=== PATIENT | female | born 1995 | race Caucasian/White ===

== ENCOUNTER 2016-06-12 19:56 | Emergency (ER) | payer OTHER ==
--- NOTE | 2016-06-12 20:33 | ER Document Report ---
ED Medical Screen (RME) - General Chief Complaint: Sore Throat Stated Complaint: NECK PAIN/SWELLING TRAVEL OUTSIDE OF THE [place] IN LAST 30 DAYS: No - HPI Notes: 06/12/16 20:33 Patient was seen at [facility] today diagnosed with mono before coming to the [facility]. Patient complaining of throat pain and swelling patient states that the did nothing for her other until she had mono. Otherwise patient speaking complete sentences. No obvious distress. - Related Data Allergies/Adverse Reactions: naproxen [From Naprosyn] Allergy (Severe, Verified 06/12/16 20:08) meloxicam [From Mobic] Adverse Reaction (Verified 06/12/16 20:08) Home Medications: Current Home Medications No Home Medications 06/12/16 [History] Past Medical History Renal/ Medical History: Denies: Hx Peritoneal Dialysis Physical Exam - Vital signs Vitals: Temp Pulse Resp BP Pulse Ox 99.2 F 102 H 18 107/69 99 06/12/16 20:09 06/12/16 20:09 06/12/16 20:09 06/12/16 20:09 06/12/16 20:09 - Respiratory Respiratory status: No respiratory distress Chest status: Nontender Breath sounds: Normal Course - Vital Signs Vital signs: Temp Pulse Resp BP Pulse Ox 99.2 F 102 H 18 107/69 99 06/12/16 20:09 06/12/16 20:09 06/12/16 20:09 06/12/16 20:09 06/12/16 20:09
[2016-06-12] MEDS ORDERED: ACETAMINOPHEN SOLN 325 MG/10.15 ML UDCUP PO ONE (21:19)
--- NOTE | 2016-06-12 21:29 | ER Document Report ---
HPI - HPI Patient complains to provider of: sore throat Pain Level: 5 Context: Patient is a 20-year-old female presents emergency Department complaining of sore throat for the past 4 days. She was recently seen at [facility] was diagnosed positive has mono and came for second opinion. At this time patient admits to difficulty swallowing as well as swollen lymph nodes low grade fevers headaches but denies any difficulty breathing, shortness of breath, wheezing, chest pain. - CARDIOVASCULAR Cardiovascular: DENIES: Chest pain - REPRODUCTIVE LMP: 05/06/16 - DERM Skin Color: Pale Past Medical History - Social History Smoking Status: Never Smoker Frequency of alcohol use: None Drug Abuse: None Family History: Reviewed & Not Pertinent Patient has suicidal ideation: No Patient has homicidal ideation: No Renal/ Medical History: Denies: Hx Peritoneal Dialysis Vertical Provider Document - CONSTITUTIONAL Agree With Documented VS: Yes Exam Limitations: No Limitations General Appearance: WD/WN, No Apparent Distress - INFECTION CONTROL TRAVEL OUTSIDE OF THE [place] IN LAST 30 DAYS: No - HEENT HEENT: Atraumatic, Normocephalic, PERRLA, Pharyngeal Tenderness, Pharyngeal Erythema. negative: Pharyngeal Exudate, Tympanic Membrane Red, Tympanic Membrane Bulging - NECK Neck: Lymphadenopathy-Left, Lymphadenopathy-Right - RESPIRATORY Respiratory: Breath Sounds Normal, No Respiratory Distress, Chest Non-Tender. negative: Rales, Rhonchi, Wheezing O2 Sat by Pulse Oximetry: 99 - CARDIOVASCULAR Cardiovascular: Regular Rate, Regular Rhythm, No Murmur Pulses: Normal: Radial - GI/ABDOMEN Gastrointestinal: Abdomen Soft, Abdomen Non-Tender, No Organomegaly, Normal Bowel Sounds - MUSCULOSKELETAL/EXTREMETIES Musculoskeletal/Extremeties: MAEW, FROM, Non-Tender, No Edema - NEURO Level of Consciousness: Awake, Alert, Appropriate Motor/Sensory: No Motor Deficit, No Sensory Deficit - DERM Integumentary: Warm, Dry, No Rash Course - Re-evaluation Re-evalutation: 06/12/16 22:02 Patient's mono spot came back positive. Discussed with patient over-the- counter medications for pain control. Discussed with her to follow up with her primary care physician as needed. Patient counseled on risks of enlarged spleen so encouraged not to involve in any contact sports - Vital Signs Vital signs: Temp Pulse Resp BP Pulse Ox 99.2 F 102 H 18 107/69 99 06/12/16 20:09 06/12/16 20:09 06/12/16 20:09 06/12/16 20:09 06/12/16 20:09 - Laboratory Laboratory results interpreted by me: 06/12/16 20:51 Monotest POSITIVE H Discharge - Discharge Clinical Impression: Mononucleosis Condition: Good Disposition: HOME, SELF-CARE Instructions: Mononucleosis ([facility]) Additional Instructions: Warm tea with honey can be beneficial for sore throats Prescriptions: Acetaminophen with Codeine [Acetaminophn-Cod 240-24 mg Jackelyn] 10 ml PO Q6HP PRN 5 Days PRN Reason: Forms: Return to Work
[2016-06-12 21:59] VITALS: BP 98/62
== END 2016-06-12 21:59 | disposition home or self-care (01) ==
LOC: ER 19:56
DX: B27.90 Infectious mononucleosis, unspecified without complication (principal); J02.9 Acute pharyngitis, unspecified; R50.9 Fever, unspecified; R59.9 Enlarged lymph nodes, unspecified
CPT/HCPCS: 99283; 36415; 87070; 87880; 84703; 86308; J3490

== ENCOUNTER 2017-01-21 18:45 | Emergency (ER) | payer MEDICAID, OTHER ==
[2017-01-21] MEDS ORDERED: ACETAMINOPHEN 325 MG TABLET PO ONE (19:01)
--- NOTE | 2017-01-21 19:01 | ER Document Report ---
ED General - General Chief Complaint: Vomiting Stated Complaint: LOWER BACK PAIN Time Seen by Provider: 01/21/17 18:55 Mode of Arrival: Ambulatory Information source: Patient Notes: 21-year-old female is presents with complaints of nausea vomiting and flank pain. Patient has pains on the right side. She denies any fevers or chills, notes that she is currently being treated with Macrobid for a UTI. Patient notes she had a UTI in 1 month ago and then [facility] and was [facility] back on Macrobid bid. Patient denies any vaginal bleeding drainage TRAVEL OUTSIDE OF THE [place] IN LAST 30 DAYS: No - HPI Onset: Yesterday Onset/Duration: Sudden Quality of pain: Cramping Severity: Mild Pain Level: 1 Associated symptoms: Nausea, Vomiting Exacerbated by: Denies Relieved by: Denies Similar symptoms previously: Yes Recently seen / treated by doctor: Yes - Related Data Allergies/Adverse Reactions: naproxen [From Naprosyn] Allergy (Severe, Verified 01/21/17 18:48) meloxicam [From Mobic] Adverse Reaction (Verified 01/21/17 18:48) Home Medications: Current Home Medications Nitrofurantoin Macrocrystal [Macrodantin] 100 mg PO BID 01/21/17 [History] No122/Iron/Folic Acid [ Multi Tablet] 1 each PO DAILY 01/21/17 [History] Past Medical History - Social History Smoking Status: Never Smoker Cigarette use (# per day): No Chew tobacco use (# tins/day): No Smoking Education Provided: No Family History: Reviewed & Not Pertinent Patient has suicidal ideation: No Patient has homicidal ideation: No Renal/ Medical History: Denies: Hx Peritoneal Dialysis Review of Systems - Review of Systems Notes: REVIEW OF SYSTEMS: CONSTITUTIONAL : Denies fever, chills, or sweats. Denies recent illness. EENT: Denies eye, ear, throat, or mouth pain or symptoms. Denies nasal or sinus congestion or discharge. Denies throat, tongue, or mouth swelling or difficulty swallowing. CARDIOVASCULAR: Denies chest pain. Denies palpitations or racing or irregular heart beat. Denies ankle edema. RESPIRATORY: Denies cough, cold, or chest congestion. Denies shortness of breath, difficulty breathing, or wheezing. GASTROINTESTINAL: admits to right flank pain, nausea vomiting GENITOURINARY: Denies difficulty urinating, painful urination, burning, frequency, blood in urine, or discharge. FEMALE GENITOURINARY: Denies vaginal bleeding, heavy or abnormal periods, irregular periods. Denies vaginal discharge or odor. MUSCULOSKELETAL: Denies back or neck pain or stiffness. Denies joint pain or swelling. SKIN: Denies rash, lesions or sores. HEMATOLOGIC : Denies easy bruising or bleeding. LYMPHATIC: Denies swollen, enlarged glands. NEUROLOGICAL: Denies confusion or altered mental status. Denies passing out or loss of consciousness. Denies dizziness or lightheadedness. Denies headache. Denies weakness or paralysis or loss of use of either side. Denies problems with gait or speech. Denies sensory loss, numbness, or tingling. Denies seizures. PSYCHIATRIC: Denies anxiety or stress. Denies depression, suicidal ideation, or homicidal ideation. ALL OTHER SYSTEMS REVIEWED AND NEGATIVE. PHYSICAL EXAMINATION: GENERAL: Well-appearing, well-nourished and in no acute distress. HEAD: Atraumatic, normocephalic. EYES: Pupils equal round and reactive to light, extraocular movements intact, conjunctiva are normal. ENT: Nares patent, oropharynx clear without exudates. Moist mucous membranes. NECK: Normal range of motion, supple without lymphadenopathy LUNGS: Breath sounds clear to auscultation bilaterally and equal. No wheezes rales or rhonchi. HEART: Regular rate and rhythm without murmurs ABDOMEN: Soft, nontender, nondistended abdomen. No guarding, no rebound. No masses appreciated. mild right cva Female : deferred Musculoskeletal: Normal range of motion, no pitting or edema. No cyanosis. NEUROLOGICAL: Cranial nerves grossly intact. Normal speech, normal gait. Normal sensory, motor exams PSYCH: Normal mood, normal affect. SKIN: Warm, Dry, normal turgor, no rashes or lesions noted. Dictation was performed using [employer]er[employer] voice recognition software Physical Exam - Vital signs Vitals: Temp Pulse Resp BP Pulse Ox 98.6 F 77 20 102/66 99 01/21/17 18:48 01/21/17 18:48 01/21/17 18:48 01/21/17 18:48 01/21/17 18:48 Course - Re-evaluation Re-evalutation: 01/21/17 19:05 Patient's vital signs are stable, the initial concern is for pyelonephritis however she overall looks quite well. Lab work is pending patient will be given IV fluids for concerns of excessive vomiting and dehydration 01/21/17 20:44 Patient's CMP hemolyzed, patient wishes to go home, I will discharge her without this lab result, her urinalysis looks well she feels much better has been resting. Patient denies any other concerns will be discharged home nausea control After performing a Medical Screening Examination, I estimate there is LOW risk for ACUTE APPENDICITIS, BOWEL OBSTRUCTION, ACUTE CHOLECYSTITIS, PERFORATED DIVERTICULITIS, INCARCERATED HERNIA, PANCREATITIS, PELVIC INFLAMMATORY DISEASE, PERFORATED ULCER, ECTOPIC , or TUBO-OVARIAN ABSCESS, thus I consider the discharge disposition reasonable. Also, there is no evidence or peritonitis , sepsis, or toxicity. I have reevaluated this patient multiple times and no significant life threatening changes are noted. The patient and I have discussed the diagnosis and risks, and we agree with discharging home with close follow-up with the understanding that symptoms and presentations can change. We also discussed returning to the Emergency Department immediately if new or worsening symptoms occur. We have discussed the symptoms which are most concerning (e.g., bloody stool, fever, changing or worsening pain, vomiting) that necessitate immediate return. - Vital Signs Vital signs: Temp Pulse Resp BP Pulse Ox 98.6 F 77 20 102/66 99 01/21/17 18:48 01/21/17 18:48 01/21/17 18:48 01/21/17 18:48 01/21/17 18:48 - Laboratory Result Diagrams: 01/21/17 19:40 01/21/17 19:40 Laboratory results interpreted by me: 01/21/17 01/21/17 19:40 20:00 Hct 34.9 L Urine Ketones 80 H Ur Leukocyte Esterase TRACE H Discharge - Discharge Clinical Impression: Nausea & vomiting Qualifiers: Vomiting type: unspecified Vomiting Intractability: non-intractable Qualified Code(s): R11.2 - Nausea with vomiting, unspecified Condition: Stable Instructions: Vomiting ([facility]) Additional Instructions: Follow up with your physician tomorrow for further care or return to the ED IMMEDIATELY if symptoms worsen or new concerns occur. If you cannot afford to follow up with your primary care physician a list of low cost clinics have been provided at the end of your discharge papers as well. Prescriptions: Metoclopramide HCl [Reglan 10 mg Tablet] 1 - 2 tab PO ASDIR PRN #25 tablet PRN Reason:
[2017-01-21] MEDS ORDERED: NORMAL SALINE 1000 ML 1,000 ML IV ONE (19:02)
[2017-01-21] MEDS ORDERED: METOCLOPRAMIDE HCL INJ/PF 10 MG/2 ML SDV IV ONE (19:02)
[2017-01-21 19:50] LABS: ABSOLUTE LYMPHOCYTES (AUTO) 1.1 10^3/uL (0.5-4.7); ABSOLUTE MONOCYTES (AUTO) 0.3 10^3/uL (0.1-1.4); ABSOLUTE NEUT (AUTO) 3.6 10^3/uL (1.7-8.2); BASOPHILS % (AUTO) 0.5 % (0-2); EOSINOPHILS % (AUTO) 0.3 % (0-6); HEMATOCRIT 34.9 % (36.0-47.0); HEMOGLOBIN 12.5 g/dL (12.0-15.5); HGB HCT DIFFERENCE 2.6; LYMPHOCYTES % (AUTO) 21.2 % (13-45); MEAN CORPUSCULAR HEMOGLOBIN 30.6 pg (27.0-33.4); MEAN CORPUSCULAR HGB CONC 35.9 g/dL (32.0-36.0); MEAN CORPUSCULAR VOLUME 85 fl (80-97); MONOCYTES % (AUTO) 5.5 % (3-13); RED BLOOD COUNT 4.09 10^6/uL (3.72-5.28); RED CELL DISTRIBUTION WIDTH 13.6 % (11.5-14.0); SEGMENTED NEUTROPHILS % (AUTO) 72.5 % (42-78)
[2017-01-21 20:39] LABS: APPEARANCE,URINE CLOUDY; BILIRUBIN,URINE NEGATIVE (NEGATIVE); GLUCOSE, URINE NEGATIVE (NEGATIVE); KETONES,URINE 80 mg/dL (NEGATIVE); LEUKOCYTE ESTERASE,URINE TRACE (NEGATIVE); NITRITE,URINE NEGATIVE (NEGATIVE); PROTEIN,URINE NEGATIVE (NEGATIVE); URINE SPECIFIC GRAVITY 1.028; UROBILINOGEN,URINE NEGATIVE mg/dL (<2.0)
[2017-01-21 20:51] VITALS: BP 101/43
== END 2017-01-21 20:51 | disposition home or self-care (01) ==
LOC: ER 18:45
DX: R11.2 Nausea with vomiting, unspecified (principal); N39.0 Urinary tract infection, site not specified; R10.9 Unspecified abdominal pain; Z88.8 Allergy status to other drugs, medicaments and biological substances
CPT/HCPCS: 99283; 96361; 96374; 36415; 87086; 85025; 81001; J3490; J2765; J7030

== ENCOUNTER 2017-01-27 15:13 | Inpatient (IN) | payer MEDICAID ==
[2017-01-27] MEDS ORDERED: OXYCODONE-ACETAMINOPHEN 5-325 MG TABLET PO PRN (16:22)
[2017-01-27] MEDS ORDERED: MISOPROSTOL 0.2 MG TABLET PV ONE (16:30)
[2017-01-27 16:50] LABS: ABSOLUTE LYMPHOCYTES (AUTO) 1.3 10^3/uL (0.5-4.7); ABSOLUTE MONOCYTES (AUTO) 0.3 10^3/uL (0.1-1.4); ABSOLUTE NEUT (AUTO) 3.5 10^3/uL (1.7-8.2); BASOPHILS % (AUTO) 0.3 % (0-2); EOSINOPHILS % (AUTO) 0.5 % (0-6); HEMATOCRIT 32.6 % (36.0-47.0); HEMOGLOBIN 11.9 g/dL (12.0-15.5); HGB HCT DIFFERENCE 3.1; LYMPHOCYTES % (AUTO) 25.4 % (13-45); MEAN CORPUSCULAR HGB CONC 36.5 g/dL (32.0-36.0); MEAN CORPUSCULAR VOLUME 85 fl (80-97); MONOCYTES % (AUTO) 6.4 % (3-13); RED BLOOD COUNT 3.84 10^6/uL (3.72-5.28); RED CELL DISTRIBUTION WIDTH 13.8 % (11.5-14.0); SEGMENTED NEUTROPHILS % (AUTO) 67.4 % (42-78); WHITE BLOOD COUNT 5.2 10^3/uL (4.0-10.5)
[2017-01-28] MEDS ORDERED: MISOPROSTOL 0.2 MG TABLET ONE ×2 (09:07→15:26)
--- NOTE | 2017-01-28 09:21 | PDOC PROGRESS REPORT ---
Subjective-OB Subjective: Post Delivery Day: 21 year old. Denies any needs at this time. In to evaluate pt. Physical Exam (OB) Vital Signs: Temp Pulse Resp BP Pulse Ox 98.9 F 66 17 92/57 L 100 01/28/17 08:05 01/28/17 08:05 01/28/17 08:05 01/28/17 08:05 01/28/17 08:05 Intake & Output 01/27/17 01/28/17 01/29/17 06:59 06:59 06:59 Weight 61.689 kg - Abdomen Hernia Present: No - Genitourinary Bimanuel exam: Other - Cervix FT, thick Objective-Diagnostic Laboratory: 01/27/17 16:33 01/27/17 01/27/17 16:33 16:33 WBC 5.2 RBC 3.84 Hgb 11.9 L Hct 32.6 L MCV 85 MCH 31.0 MCHC 36.5 H RDW 13.8 Plt Count 186 Seg Neutrophils % 67.4 Lymphocytes % 25.4 Monocytes % 6.4 Eosinophils % 0.5 Basophils % 0.3 Absolute Neutrophils 3.5 Absolute Lymphocytes 1.3 Absolute Monocytes 0.3 Absolute Eosinophils 0.0 Absolute Basophils 0.0 Blood Type A NEGATIVE Antibody Screen NEGATIVE Assessment and Plan(PN) - Assessment and Plan (1) demise before 20 weeks with retention of fetus Is this a current diagnosis for this admission?: Yes Plan: Cont Cytotec induction. 800mg placed vaginally. Re-evaluate q 6hrs. - Time Spent with Patient Time with patient: Less than 15 minutes
--- NOTE | 2017-01-28 16:23 | PDOC PROGRESS REPORT ---
Subjective-OB Subjective: Post Delivery Day: 21 year old. Denies any needs at this time. In to evaluate pt. No cramping. Physical Exam (OB) Vital Signs: Temp Pulse Resp BP Pulse Ox 98.6 F 73 18 95/47 L 99 01/28/17 15:39 01/28/17 15:39 01/28/17 15:39 01/28/17 15:39 01/28/17 15:39 Intake & Output 01/27/17 01/28/17 01/29/17 06:59 06:59 06:59 Intake Total 480 Balance 480 Weight 61.689 kg - Abdomen Hernia Present: No - Genitourinary Bimanuel exam: Other - Cervix / Objective-Diagnostic Laboratory: 01/27/17 16:33 01/27/17 01/27/17 16:33 16:33 WBC 5.2 RBC 3.84 Hgb 11.9 L Hct 32.6 L MCV 85 MCH 31.0 MCHC 36.5 H RDW 13.8 Plt Count 186 Seg Neutrophils % 67.4 Lymphocytes % 25.4 Monocytes % 6.4 Eosinophils % 0.5 Basophils % 0.3 Absolute Neutrophils 3.5 Absolute Lymphocytes 1.3 Absolute Monocytes 0.3 Absolute Eosinophils 0.0 Absolute Basophils 0.0 Blood Type A NEGATIVE Antibody Screen NEGATIVE Assessment and Plan(PN) - Assessment and Plan (1) demise before 20 weeks with retention of fetus Is this a current diagnosis for this admission?: Yes Plan: Cytotec 800mcg placed. Cont current management.
[2017-01-28] MEDS ORDERED: MAGNESIUM HYDROXIDE SUSP 30 ML UDCUP PO ONE (17:00)
[2017-01-28] MEDS: OXYCODONE-ACETAMINOPHEN 5-325 MG TABLET PO PRN (18:38)
[2017-01-29] MEDS ORDERED: MISOPROSTOL 0.2 MG TABLET ONE ×3 (00:47→16:05)
--- NOTE | 2017-01-29 01:08 | PDOC PROGRESS REPORT ---
Subjective Progress Note for:: 01/29/17 Subjective:: 21 yo with 15wk IUFD here for induction. Pt without complaints. Physical Exam - Physical Exam Vital Signs: Temp Pulse Resp BP Pulse Ox 98.6 F 64 16 92/48 L 98 01/28/17 23:14 01/28/17 23:14 01/28/17 23:14 01/28/17 23:14 01/28/17 23:14 Intake & Output 01/27/17 01/28/17 01/29/17 06:59 06:59 06:59 Intake Total 480 Balance 480 Weight 61.689 kg General appearance: PRESENT: no acute distress Head exam: PRESENT: atraumatic, normocephalic Gentrourinary exam: PRESENT: other - Cervix loose FT/th Neurological exam: PRESENT: alert, awake, oriented to person, oriented to place , oriented to time, oriented to situation - Gynecological Exam Labia: normal Perineum: normal Result Laboratory Results: 01/27/17 16:33 Assessment & Plan - Diagnosis (1) demise before 20 weeks with retention of fetus Is this a current diagnosis for this admission?: Yes - Plan Summary Plan Summary: Cytotec 800mcg placed. Pt has had 4 doses of Cytotec at the current strength with small change in cervical exam. If possible, consider D&E as no significant progress being made with Cytotec.
[2017-01-29] MEDS ORDERED: MISOPROSTOL 0.2 MG TABLET PV ONE (01:15)
--- NOTE | 2017-01-29 08:54 | PDOC PROGRESS REPORT ---
Subjective Progress Note for:: 01/29/17 Physical Exam - Physical Exam Vital Signs: Temp Pulse Resp BP Pulse Ox 98.9 F 72 16 98/49 L 98 01/29/17 07:52 01/29/17 07:52 01/29/17 07:52 01/29/17 07:52 01/29/17 07:52 Intake & Output 01/28/17 01/29/17 01/30/17 06:59 06:59 06:59 Intake Total 480 Balance 480 Weight 61.689 kg - Gynecological Exam Labia: normal Perineum: normal Result Laboratory Results: 01/27/17 16:33 Assessment & Plan - Plan Summary Plan Summary: pt without complaints but no results from cytotec.. Spoke with pt about a D&E tomorrow if no delivery effected before
[2017-01-29] MEDS: OXYCODONE-ACETAMINOPHEN 5-325 MG TABLET PO PRN (17:15)
[2017-01-29] MEDS ORDERED: MISOPROSTOL 0.2 MG TABLET PV SCH (18:00)
[2017-01-29] MEDS ORDERED: ACETAMINOPHEN 325 MG TABLET PO PRN (19:52)
[2017-01-29] MEDS ORDERED: ONDANSETRON HCL INJ/PF 4 MG/2 ML SDV IV PRN ×2 (19:52)
[2017-01-29] MEDS: MISOPROSTOL 0.2 MG TABLET PV SCH (21:33)
[2017-01-29] MEDS ORDERED: DEXTROSE 40% GEL 15 GM TUBE PO PRN ×2 (22:18)
[2017-01-29] MEDS ORDERED: GLUCAGON,HUMAN RECOMB 1 MG INJ SUBCUT PRN (22:18)
[2017-01-29] MEDS ORDERED: DEXTROSE 50%-WATER 25 GM/50 ML DISP.SYRIN IV PRN ×2 (22:18)
[2017-01-30] MEDS: MISOPROSTOL 0.2 MG TABLET PV SCH ×2 (03:36→08:23)
[2017-01-30 08:02] VITALS: BP 100/50
--- NOTE | 2017-01-30 11:05 | PDOC DISCHARGE SUMMARY ---
General - Admit/Disc Date/PCP Admission Date/Primary Care Provider: 01/27/17 15:13 MAKSIM DURHAM MD Discharge Date: 01/30/17 - Discharge Diagnosis (1) demise before 20 weeks with retention of fetus Is this a current diagnosis for this admission?: Yes Summary: IUFD at 15+5 with 14weeks ega by measurement. Patient admitted on 01/27 for IOL for IUFD with high dose cytotec for 3 days now. Pt is now declining further medical management. Reviewed possible options including other medications and possible Cooks catheter. However, cervical exam now after 3 days of medical management is only Finger tip at external os and closed at internal os. Reviewed unable to place cooks catheter. Patient desires referral to [facility] for continued management. Repeat labs ordered this am and if stable (including coags) then will discharge to home with urgent outpatient f/u with [facility]. - Additional Information Home Medications: Metoclopramide HCl [Reglan 10 mg Tablet] 1 - 2 tab PO ASDIR PRN #25 tablet 01/21 Nitrofurantoin Macrocrystal [Macrodantin] 100 mg PO BID 01/21/17 No122/Iron/Folic Acid [ Multi Tablet] 1 each PO DAILY 01/21/17 History of Present Illness Patient complains of: IUFD at 15+5ega History of Present Illness: JOCELYNE THOMAS is a 21 year old female IUFD at 15+5ega with measurement of fetus at 14wks ega. Admitted for IOL due to IUFD on 01/27. Hospital Course Hospital Course: IUFD at 15+5 with 14weeks ega by measurement. Patient admitted on 01/27 for IOL for IUFD with high dose cytotec for 3 days now. Pt is now declining further medical management. Reviewed possible options including other medications and possible Cooks catheter. However, cervical exam now after 3 days of medical management is only Finger tip at external os and closed at internal os. Reviewed unable to place cooks catheter. Patient desires referral to [facility] for continued management. Physical Exam - Physical Exam Vital Signs: Temp Pulse Resp BP Pulse Ox 98.5 F 70 17 100/50 L 99 01/30/17 07:31 01/30/17 07:31 01/30/17 07:31 01/30/17 07:31 01/30/17 07:31 Intake & Output 01/29/17 01/30/17 01/31/17 06:59 06:59 06:59 Intake Total 480 100 Output Total 900 Balance 480 -800 General appearance: PRESENT: no acute distress, well-developed, well-nourished Head exam: PRESENT: atraumatic, normocephalic Respiratory exam: PRESENT: clear to auscultation barrera, symmetrical, unlabored Cardiovascular exam: PRESENT: RRR. ABSENT: diastolic murmur, rubs, systolic murmur Pulses: PRESENT: normal dorsalis pedis pul, +2 pedal pulses bilateral Vascular exam: PRESENT: normal capillary refill GI/Abdominal exam: PRESENT: normal bowel sounds, soft. ABSENT: distended, guarding, mass, organolmegaly, rebound, tenderness Rectal exam: PRESENT: deferred Extremities exam: PRESENT: full ROM. ABSENT: calf tenderness, clubbing, pedal edema Neurological exam: PRESENT: alert, awake, oriented to person, oriented to place , oriented to time, oriented to situation, CN II-XII grossly intact. ABSENT: motor sensory deficit Psychiatric exam: PRESENT: appropriate affect, normal mood. ABSENT: homicidal ideation, suicidal ideation Skin exam: PRESENT: dry, intact, warm. ABSENT: cyanosis, rash - Gynecological Exam Labia: normal Perineum: normal Result Laboratory Results: 01/27/17 16:33 Status: Imported from PACS Plan Discharge Plan: Discharge with oupatient f/u in [facility]. If vaginal bleeding/abdominal pain then present to [facility] ER. pt verbalized understanding. Time Spent: Greater than 30 Minutes
[2017-01-30 11:12] LABS: ABSOLUTE MONOCYTES (AUTO) 0.3 10^3/uL (0.1-1.4); ABSOLUTE NEUT (AUTO) 4.6 10^3/uL (1.7-8.2); BASOPHILS % (AUTO) 0.3 % (0-2); EOSINOPHILS % (AUTO) 0.3 % (0-6); HEMATOCRIT 33.1 % (36.0-47.0); HEMOGLOBIN 11.7 g/dL (12.0-15.5); LYMPHOCYTES % (AUTO) 16.6 % (13-45); MEAN CORPUSCULAR HEMOGLOBIN 30.8 pg (27.0-33.4); MEAN CORPUSCULAR HGB CONC 35.5 g/dL (32.0-36.0); MEAN CORPUSCULAR VOLUME 87 fl (80-97); MONOCYTES % (AUTO) 4.6 % (3-13); RED BLOOD COUNT 3.81 10^6/uL (3.72-5.28); RED CELL DISTRIBUTION WIDTH 13.5 % (11.5-14.0); SEGMENTED NEUTROPHILS % (AUTO) 78.2 % (42-78); WHITE BLOOD COUNT 5.9 10^3/uL (4.0-10.5)
[2017-01-30 11:18] LABS: PROTHROMBIN TIME 13.5 SEC (11.4-15.4)
[2017-01-30 11:19] LABS: PARTIAL THROMBOPLASTIN TIME 31.1 SEC (23.5-35.8)
[2017-01-30 11:36] LABS: ALANINE AMINOTRANSFERASE 21 U/L (9-52); ALBUMIN 3.8 g/dL (3.5-5.0); ALKALINE PHOSPHATASE 33 U/L (38-126); ANION GAP 14 (5-19); ASPARTATE AMINO TRANSFERASE 17 U/L (14-36); BILIRUBIN,DIRECT 0.3 mg/dL (0.0-0.4); BILIRUBIN,TOTAL 0.7 mg/dL (0.2-1.3); BLOOD UREA NITROGEN 10 mg/dL (7-20); CALCIUM 9.3 mg/dL (8.4-10.2); CARBON DIOXIDE 18 mmol/L (22-30); CHLORIDE 106 mmol/L (98-107); CREATININE RESULT 0.55 mg/dL (0.52-1.25); GLUCOSE 76 mg/dL (75-110); POTASSIUM 4.1 mmol/L (3.6-5.0); SODIUM 138.1 mmol/L (137-145); TOTAL PROTEIN 6.4 g/dL (6.3-8.2)
== END 2017-01-30 12:46 | disposition short-term general hospital (02) | DRG 779 ==
LOC: INTOOBSV 15:13 → OBSVTOIN 15:13 → 2S 15:13
PROVIDERS: ADMIT Obstetrics & Gynecology Gynecology; ATTEND Obstetrics & Gynecology Gynecology
PROC: 3E0P7GC Introduction of Other Therapeutic Substance into Female Reproductive, Via Natural or Artificial Opening (ICD-10-PCS; principal; 2017-01-27)
DX: O02.1 Missed abortion (principal); Z82.49 Family history of ischemic heart disease and other diseases of the circulatory system; Z83.3 Family history of diabetes mellitus
CPT/HCPCS: 36415; 80053; 85025; 85610; 85730; 86850; 86900; 86901; J2405; J3490

== ENCOUNTER 2017-04-19 20:42 | Emergency (ER) | payer MEDICAID ==
--- NOTE | 2017-04-20 00:30 | ER Document Report ---
ED Medical Screen (RME) - General Chief Complaint: Vaginal Bleeding Stated Complaint: VAGINAL BLEEDING Time Seen by Provider: 04/20/17 00:28 Mode of Arrival: Ambulatory Information source: Patient Notes: 20-year-old female presents to ED for complaint of vaginal bleeding severe heavy with large clots tonight. She states she had a miscarriage in January and has had no period since January until Monday. She stated Monday it was super light bleeding with no clots today it started like a normal menstrual cycle in the morning and then tonight the bleeding was much heavier with a large clots. She states even when she urinates she has clots and she is going to a tampon about every 3040 minutes. She states she has no abdominal pain no pelvic pain but she does have low back pain. I have greeted and performed a rapid initial assessment of this patient. A comprehensive ED assessment and evaluation of the patient, analysis of test results and completion of medical decision making process will be conducted by an additional ED providers. TRAVEL OUTSIDE OF THE [place] IN LAST 30 DAYS: No - Related Data Allergies/Adverse Reactions: naproxen [From Naprosyn] Allergy (Severe, Verified 01/21/17 18:48) meloxicam [From Mobic] Adverse Reaction (Verified 01/21/17 18:48) Past Medical History - Past Medical History Cardiac Medical History: Denies: Hx Hypertension, Hx Pulmonary Embolism, Hx Heart Murmur Pulmonary Medical History: Denies: Hx Asthma, Hx Sleep Apnea, Hx Tuberculosis Neurological Medical History: Denies: Hx Cerebrovascular Accident, Hx Seizures Endocrine Medical History: Reports: Hx Hypothyroidism - not current diagnosis. Denies: Hx Hyperthyroidism Renal/ Medical History: Reports: Hx Ovarian Cysts - in high school. Denies: Hx Kidney Stones, Hx Peritoneal Dialysis, Hx Pelvic Inflammatory Disease Malignancy Medical History: Denies: Hx Breast Cancer, Hx Cervical Cancer, Hx Ovarian Cancer GI Medical History: Denies: Hx Gastroesophageal Reflux Disease, Hx Hiatal Hernia , Hx Ulcer Musculoskeltal Medical History: Denies Hx Fibromyalgia Psychiatric Medical History: Denies: Hx Bipolar Disorder, Hx Depression, Hx Post Traumatic Stress Disorder , Hx Schizophrenia Traumatic Medical History: Denies: Hx Fractures Infectious Medical History: Denies: Hx HIV Past Surgical History: Reports: Hx Tonsillectomy - Immunizations Hx Diphtheria, Pertussis, Tetanus Vaccination: No History of Influenza Vaccine for 12/2016 - 05/2017 Season: Refused
[2017-04-20 01:14] LABS: ABSOLUTE EOSINOPHILS # (AUTO) 0.1 10^3/uL (0.0-0.6); ABSOLUTE MONOCYTES (AUTO) 0.4 10^3/uL (0.1-1.4); ABSOLUTE NEUT (AUTO) 2.9 10^3/uL (1.7-8.2); BASOPHILS % (AUTO) 0.4 % (0-2); EOSINOPHILS % (AUTO) 1.3 % (0-6); HEMATOCRIT 36.6 % (36.0-47.0); HEMOGLOBIN 12.4 g/dL (12.0-15.5); LYMPHOCYTES % (AUTO) 36.8 % (13-45); MEAN CORPUSCULAR HEMOGLOBIN 29.4 pg (27.0-33.4); MEAN CORPUSCULAR HGB CONC 33.8 g/dL (32.0-36.0); MEAN CORPUSCULAR VOLUME 87 fl (80-97); MONOCYTES % (AUTO) 7.1 % (3-13); PLATELET COUNT 236 10^3/uL (150-450); RED BLOOD COUNT 4.21 10^6/uL (3.72-5.28); RED CELL DISTRIBUTION WIDTH 12.3 % (11.5-14.0); SEGMENTED NEUTROPHILS % (AUTO) 54.4 % (42-78); TOTAL CELLS COUNTED % (AUTO) 100 %; WHITE BLOOD COUNT 5.3 10^3/uL (4.0-10.5)
[2017-04-20 01:24] LABS: APPEARANCE,URINE CLEAR; BILIRUBIN,URINE NEGATIVE (NEGATIVE); CALCIUM OXALATE CRYSTALS,URINE RARE /HPF; COLOR,URINE YELLOW; GLUCOSE, URINE NEGATIVE (NEGATIVE); KETONES,URINE NEGATIVE (NEGATIVE); LEUKOCYTE ESTERASE,URINE NEGATIVE (NEGATIVE); NITRITE,URINE NEGATIVE (NEGATIVE); PROTEIN,URINE NEGATIVE (NEGATIVE); URINE SPECIFIC GRAVITY 1.026; UROBILINOGEN,URINE NEGATIVE mg/dL (<2.0)
[2017-04-20 01:33] LABS: ALANINE AMINOTRANSFERASE 24 U/L (9-52); ALBUMIN 4.4 g/dL (3.5-5.0); ALKALINE PHOSPHATASE 44 U/L (38-126); ANION GAP 10 (5-19); ASPARTATE AMINO TRANSFERASE 20 U/L (14-36); BILIRUBIN,DIRECT 0.3 mg/dL (0.0-0.4); BILIRUBIN,TOTAL 0.3 mg/dL (0.2-1.3); BLOOD UREA NITROGEN 18 mg/dL (7-20); CALCIUM 9.9 mg/dL (8.4-10.2); CARBON DIOXIDE 24 mmol/L (22-30); CHLORIDE 108 mmol/L (98-107); GLUCOSE 92 mg/dL (75-110); POTASSIUM 3.8 mmol/L (3.6-5.0); SODIUM 141.5 mmol/L (137-145)
--- NOTE | 2017-04-20 03:38 | ER Document Report ---
ED GI/ - General Chief Complaint: Vaginal Bleeding Stated Complaint: VAGINAL BLEEDING Time Seen by Provider: 04/20/17 00:28 Mode of Arrival: Ambulatory Notes: 21-year-old female presented to ED for complaint of vaginal bleeding that was severe with large clots tonight. She states she had a miscarriage in January and has had no period since January until Monday. She stated on Monday she started with super light bleeding and no clots then today she started with a normal period this morning which is progressed to heavy bleeding with large clots. She states even when she urinates she passes clots through her tampon. She states the tampon only lasts 30-40 minutes. She states she has had no abdominal or pelvic pain but she does have some mild low back pain. TRAVEL OUTSIDE OF THE [place] IN LAST 30 DAYS: No - HPI Patient complains to provider of: Vaginal bleeding Onset: Other - . Started on Monday became much heavier today Timing/Duration: Gradual, Worse Quality of pain: Cramping - Mild low back cramping Severity at maximum: Mild Severity in ED: Mild Pain Level: 1 Location: Low back Vaginal bleeding (Compared to normal period): Heavier, Passing clots LMP: Monday Associated symptoms: Other - Heavy vaginal bleeding Exacerbated by: Denies Relieved by: Denies Similar symptoms previously: No Recently seen / treated by doctor: No - Related Data Allergies/Adverse Reactions: naproxen [From Naprosyn] Allergy (Severe, Verified 01/21/17 18:48) meloxicam [From Mobic] Adverse Reaction (Verified 01/21/17 18:48) Past Medical History - General Information source: Patient Last Menstrual Period: 03/01/2017 - Social History Smoking Status: Never Smoker Chew tobacco use (# tins/day): No Frequency of alcohol use: Occasional Drug Abuse: None Lives with: Family Family History: Reviewed & Not Pertinent Patient has suicidal ideation: No Patient has homicidal ideation: No - Past Medical History Cardiac Medical History: Reports: None Pulmonary Medical History: Reports: None EENT Medical History: Reports: None Neurological Medical History: Reports: None Endocrine Medical History: Reports: Hx Hypothyroidism - not current diagnosis Renal/ Medical History: Reports: Hx Ovarian Cysts - in high school Malignancy Medical History: Reports: None GI Medical History: Reports: None Musculoskeltal Medical History: Reports None Skin Medical History: Reports None Psychiatric Medical History: Reports: None Traumatic Medical History: Reports: None Infectious Medical History: Reports: None Past Surgical History: Reports: Hx Tonsillectomy - Immunizations Hx Diphtheria, Pertussis, Tetanus Vaccination: No Review of Systems - Review of Systems Constitutional: No symptoms reported EENT: No symptoms reported Cardiovascular: No symptoms reported Respiratory: No symptoms reported Gastrointestinal: No symptoms reported Genitourinary: No symptoms reported Female Genitourinary: Vaginal bleeding - Heavy vaginal bleeding with large clots Musculoskeletal: Back pain - Low back cramping Skin: No symptoms reported Hematologic/Lymphatic: No symptoms reported Neurological/Psychological: No symptoms reported -: Yes All other systems reviewed and negative Physical Exam - Vital signs Vitals: Temp Pulse Resp BP Pulse Ox 98.4 F 69 18 110/65 100 04/19/17 23:00 04/19/17 23:00 04/19/17 23:00 04/19/17 23:00 04/19/17 23:00 Interpretation: Normal - General General appearance: Appears well, Alert - HEENT Head: Normocephalic, Atraumatic Eyes: Normal Pupils: PERRL - Respiratory Respiratory status: No respiratory distress Chest status: Nontender Breath sounds: Normal Chest palpation: Normal - Cardiovascular Rhythm: Regular Heart sounds: Normal auscultation Murmur: No - Abdominal Inspection: Normal Distension: No distension Bowel sounds: Normal Tenderness: Nontender Organomegaly: No organomegaly - Genitourinary External exam: Normal Speculum exam: Normal Vaginal bleeding: Mild Bimanuel exam: Normal - Back Back: Normal, Nontender - Extremities General upper extremity: Normal inspection, Nontender, Normal color, Normal ROM , Normal temperature General lower extremity: Normal inspection, Nontender, Normal color, Normal ROM , Normal temperature, Normal weight bearing. No: Nasim's sign - Neurological Neuro grossly intact: Yes Cognition: Normal Orientation: AAOx4 [place] Coma Scale Eye Opening: Spontaneous [place] Coma Scale Verbal: Oriented [place] Coma Scale Motor: Obeys Commands [place] Coma Scale Total: 15 Speech: Normal Motor strength normal: LUE, RUE, LLE, RLE Sensory: Normal - Psychological Associated symptoms: Normal affect, Normal mood - Skin Skin Temperature: Warm Skin Moisture: Dry Skin Color: Normal Course - Re-evaluation Re-evalutation: 04/20/17 08:35 Bleeding was much improved when I did the pelvic. There was minimal vaginal bleeding. There was no clots in the vaginal vault. Patient states of course it would be much better when she gets examined after the bleeding was heavy with the largest clot as it was all evening. Patient was discharged home to follow-up with her primary doctor and to get a consult with an [employer] for further monitoring if she continues to have heavy bleeding and clots - Vital Signs Vital signs: Temp Pulse Resp BP Pulse Ox 98.5 F 68 18 98/61 L 99 04/20/17 04:19 04/20/17 04:19 04/20/17 04:19 04/20/17 04:19 04/20/17 04:19 - Laboratory Result Diagrams: 04/20/17 01:03 04/20/17 01:03 Laboratory results interpreted by me: 04/20/17 04/20/17 00:39 01:03 Chloride 108 H Urine Blood LARGE H Discharge - Discharge Clinical Impression: Pelvic pain, Episode of heavy vaginal bleeding Condition: Stable Disposition: HOME, SELF-CARE Additional Instructions: VAGINAL BLEEDING: You are having an episode of abnormal bleeding. Causes of abnormal vaginal bleeding can include miscarriage or tubal , tumors such as cancer or benign fibroids, medication effects, or hormone imbalance. Testing can eliminate unsuspected , tumors, or infection as a cause. "Dysfunctional uterine bleeding" is due to hormone imbalance, and is especially common at times when the normal cycle is disturbed -- whether by recent , use of control pills or hormones, or impending menopause. If the bleeding is innocent, most commonly a short course of hormones is given to restore the uterus to normal. Sometimes, the normal menstrual cycle corrects itself naturally. Sometimes , brief hormone therapy, or even a D&C is required. Your physician will advise you. Treatment for anemia may be required if bleeding is severe. You should rest and avoid intercourse until the bleeding is controlled. Call the doctor or return for re-examination if you feel faint, have increasing pain, or have a major increase in the amount of bleeding. NORMAL EXAM AND WORKUP: At this time, except for vaginal bleeding, your examination and workup show no significant abnormality. No significant abnormal physical findings were noted. All laboratory, EKG, and imaging (x-ray, CT scans, ultrasound) studies that were ordered show no significant abnormality. Although your examination and all studies that were ordered showed no significant abnormal finding, there are no examinations and no studies that are 100% accurate. There is always the possibility that some abnormality could exist and not be detected with physical examination or within the limits and capabilities of laboratory and other studies. You should return or follow up as you were instructed on your visit today for further evaluation if your symptoms do not resolve. Ibuprofen Ibuprofen is an excellent, safe drug for pain control. In addition, it has potent antiinflammatory effects which are beneficial, especially in the treatment of injuries, arthritis, or tendonitis. It's best to take ibuprofen with food. Persons with ulcer disease or allergy to aspirin should notify their physician of this before taking ibuprofen. Take the medication exactly as prescribed. Don't take additional doses unless instructed to do so by your doctor. If you develop wheezing, shortness of breath, hives, faintness, stomach pain, vomiting, or dark black stools, return for re-evaluation at once. FOLLOW-UP CARE: If you have been referred to a physician for follow-up care, call the physician s office for an appointment as you were instructed or within the next two days. If you experience worsening or a significant change in your symptoms (very heavy bleeding with large clots of blood, passage of tissue, more severe abdominal / pelvic pain or cramping, feeling faint or severe weakness, fever, etc.), notify the physician immediately or return to the Emergency Department at any time for re-evaluation. OBSTETRIC-GYNECOLOGIC (OB-INDIVIDUAL [employer]) [facility] IN [place]: [facility] [address] [place] [address] [phone] Referrals: OSCAR RODRIGUEZ MD [Primary Care Provider] - Follow up as needed
[2017-04-20 04:20] VITALS: BP 98/61
== END 2017-04-20 04:26 | disposition home or self-care (01) ==
LOC: ER 20:42
DX: N93.8 Other specified abnormal uterine and vaginal bleeding (principal); R10.2 Pelvic and perineal pain
CPT/HCPCS: 36415; 80053; 81001; 84702; 85025; 86900; 86901; 99284

== ENCOUNTER 2017-07-01 21:43 | Emergency (ER) | payer MEDICAID ==
--- NOTE | 2017-07-01 22:58 | ER Document Report ---
ED General - General Chief Complaint: Abdominal Pain Stated Complaint: STOMACH PAIN Time Seen by Provider: 07/01/17 22:55 Mode of Arrival: Ambulatory Information source: Patient Notes: 21-year-old female presents with complaints of sudden right lower quadrant abdominal pain of 3 hour duration. Patient denies any fevers or chills denies any nausea vomiting or diarrhea. TRAVEL OUTSIDE OF THE [place] IN LAST 30 DAYS: No - HPI Onset: Just prior to arrival Onset/Duration: Sudden Quality of pain: Sharp Severity: Mild Pain Level: 1 Associated symptoms: Other Exacerbated by: Denies Relieved by: Denies Similar symptoms previously: No Recently seen / treated by doctor: No - Related Data Allergies/Adverse Reactions: naproxen [From Naprosyn] Allergy (Severe, Verified 01/21/17 18:48) meloxicam [From Mobic] Adverse Reaction (Verified 01/21/17 18:48) Past Medical History - Social History Smoking Status: Never Smoker Cigarette use (# per day): No Chew tobacco use (# tins/day): No Smoking Education Provided: No Family History: Reviewed & Not Pertinent - Past Medical History Cardiac Medical History: Denies: Hx Hypertension, Hx Pulmonary Embolism, Hx Heart Murmur Pulmonary Medical History: Denies: Hx Asthma, Hx Sleep Apnea, Hx Tuberculosis Neurological Medical History: Denies: Hx Cerebrovascular Accident, Hx Seizures Endocrine Medical History: Reports: Hx Hypothyroidism - not current diagnosis. Denies: Hx Hyperthyroidism Renal/ Medical History: Reports: Hx Ovarian Cysts - in high school. Denies: Hx Kidney Stones, Hx Peritoneal Dialysis, Hx Pelvic Inflammatory Disease Malignancy Medical History: Denies: Hx Breast Cancer, Hx Cervical Cancer, Hx Ovarian Cancer GI Medical History: Denies: Hx Gastroesophageal Reflux Disease, Hx Hiatal Hernia , Hx Ulcer Musculoskeltal Medical History: Denies Hx Fibromyalgia Psychiatric Medical History: Denies: Hx Bipolar Disorder, Hx Depression, Hx Post Traumatic Stress Disorder , Hx Schizophrenia Traumatic Medical History: Denies: Hx Fractures Infectious Medical History: Denies: Hx HIV Past Surgical History: Reports: Hx Tonsillectomy - Immunizations Hx Diphtheria, Pertussis, Tetanus Vaccination: No Review of Systems - Review of Systems Notes: REVIEW OF SYSTEMS: CONSTITUTIONAL : Denies fever, chills, or sweats. Denies recent illness. EENT: Denies eye, ear, throat, or mouth pain or symptoms. Denies nasal or sinus congestion or discharge. Denies throat, tongue, or mouth swelling or difficulty swallowing. CARDIOVASCULAR: Denies chest pain. Denies palpitations or racing or irregular heart beat. Denies ankle edema. RESPIRATORY: Denies cough, cold, or chest congestion. Denies shortness of breath, difficulty breathing, or wheezing. GASTROINTESTINAL: Admits to right lower quadrant abdominal pain radiating to left lower quadrant GENITOURINARY: Denies difficulty urinating, painful urination, burning, frequency, blood in urine, or discharge. FEMALE GENITOURINARY: Denies vaginal bleeding, heavy or abnormal periods, irregular periods. Denies vaginal discharge or odor. MUSCULOSKELETAL: Denies back or neck pain or stiffness. Denies joint pain or swelling. SKIN: Denies rash, lesions or sores. HEMATOLOGIC : Denies easy bruising or bleeding. LYMPHATIC: Denies swollen, enlarged glands. NEUROLOGICAL: Denies confusion or altered mental status. Denies passing out or loss of consciousness. Denies dizziness or lightheadedness. Denies headache. Denies weakness or paralysis or loss of use of either side. Denies problems with gait or speech. Denies sensory loss, numbness, or tingling. Denies seizures. PSYCHIATRIC: Denies anxiety or stress. Denies depression, suicidal ideation, or homicidal ideation. ALL OTHER SYSTEMS REVIEWED AND NEGATIVE. PHYSICAL EXAMINATION: GENERAL: Well-appearing, well-nourished and in no acute distress. HEAD: Atraumatic, normocephalic. EYES: Pupils equal round and reactive to light, extraocular movements intact, conjunctiva are normal. ENT: Nares patent, oropharynx clear without exudates. Moist mucous membranes. NECK: Normal range of motion, supple without lymphadenopathy LUNGS: Breath sounds clear to auscultation bilaterally and equal. No wheezes rales or rhonchi. HEART: Regular rate and rhythm without murmurs ABDOMEN: Soft, tender in the right lower quadrant no rebound no guarding mild tenderness in left lower quadrant Female : deferred Musculoskeletal: Normal range of motion, no pitting or edema. No cyanosis. NEUROLOGICAL: Cranial nerves grossly intact. Normal speech, normal gait. Normal sensory, motor exams PSYCH: Normal mood, normal affect. SKIN: Warm, Dry, normal turgor, no rashes or lesions noted. Dictation was performed using [employer] recognition software Physical Exam - Vital signs Vitals: Temp Pulse Resp BP Pulse Ox 97.9 F 97 18 118/58 L 100 07/01/17 22:27 07/01/17 22:27 07/01/17 22:27 07/01/17 22:27 07/01/17 22:27 Course - Re-evaluation Re-evalutation: 07/02/17 00:04 Lab work pending, patient unsure if she is not, patient's pain appears to be more bowel related or ovarian related rather than secondary to infectious process such as appendicitis 07/02/17 03:47 Patient's lab work and imaging was most consistent with a hemorrhagic ovarian cyst, the results have been reviewed to her, she has been given pain control and very strict return precautions, I do not believe this is infectious or inflammatory given lack of white count fevers and history of STDs After performing a Medical Screening Examination, I estimate there is LOW risk for ACUTE APPENDICITIS, BOWEL OBSTRUCTION, ACUTE CHOLECYSTITIS, PERFORATED DIVERTICULITIS, INCARCERATED HERNIA, PANCREATITIS, PELVIC INFLAMMATORY DISEASE, PERFORATED ULCER, ECTOPIC , or TUBO-OVARIAN ABSCESS, thus I consider the discharge disposition reasonable. Also, there is no evidence or peritonitis , sepsis, or toxicity. I have reevaluated this patient multiple times and no significant life threatening changes are noted. The patient and I have discussed the diagnosis and risks, and we agree with discharging home with close follow-up with the understanding that symptoms and presentations can change. We also discussed returning to the Emergency Department immediately if new or worsening symptoms occur. We have discussed the symptoms which are most concerning (e.g., bloody stool, fever, changing or worsening pain, vomiting) that necessitate immediate return. 07/02/17 03:49 - Vital Signs Vital signs: Temp Pulse Resp BP Pulse Ox 98.3 F 78 16 100/59 L 99 07/02/17 01:59 07/02/17 01:59 07/02/17 01:59 07/02/17 01:59 07/02/17 01:59 - Laboratory Result Diagrams: 07/01/17 23:35 07/01/17 23:35 Laboratory results interpreted by me: 07/01/17 07/01/17 07/01/17 23:35 23:35 23:48 Hgb 11.9 L Hct 35.3 L Seg Neutrophils % 78.5 H Creatinine 0.51 L Urine Urobilinogen 2.0 H - Diagnostic Test Radiology reviewed: Image reviewed - Ultrasound transvaginal consistent with hemorrhagic ovarian cyst free fluid, Reports reviewed Discharge - Discharge Clinical Impression: Hemorrhagic cyst, Right lower quadrant pain Condition: Stable Disposition: HOME, SELF-CARE Instructions: Pelvic Pain ([facility]) Prescriptions: Hydrocodone/Acetaminophen [Empire 5-325 mg Tablet] 1 tab PO Q6 #10 tablet Referrals: OSCAR RODRIGUEZ MD [Primary Care Provider] - Follow up as needed [facility] [Provider Group] - Follow up tomorrow
[2017-07-01 23:57] LABS: ABSOLUTE LYMPHOCYTES (AUTO) 1.2 10^3/uL (0.5-4.7); ABSOLUTE MONOCYTES (AUTO) 0.4 10^3/uL (0.1-1.4); ABSOLUTE NEUT (AUTO) 5.9 10^3/uL (1.7-8.2); BASOPHILS % (AUTO) 0.3 % (0-2); EOSINOPHILS % (AUTO) 0.5 % (0-6); HEMATOCRIT 35.3 % (36.0-47.0); HEMOGLOBIN 11.9 g/dL (12.0-15.5); LYMPHOCYTES % (AUTO) 15.4 % (13-45); MEAN CORPUSCULAR HGB CONC 33.8 g/dL (32.0-36.0); MEAN CORPUSCULAR VOLUME 83 fl (80-97); MONOCYTES % (AUTO) 5.3 % (3-13); PLATELET COUNT 252 10^3/uL (150-450); RED BLOOD COUNT 4.25 10^6/uL (3.72-5.28); RED CELL DISTRIBUTION WIDTH 13.6 % (11.5-14.0); SEGMENTED NEUTROPHILS % (AUTO) 78.5 % (42-78); TOTAL CELLS COUNTED % (AUTO) 100 %; WHITE BLOOD COUNT 7.5 10^3/uL (4.0-10.5)
[2017-07-02] MEDS ORDERED: ACETAMINOPHEN 325 MG TABLET PO ONE (00:03)
[2017-07-02 00:16] LABS: ALANINE AMINOTRANSFERASE 29 U/L (9-52); ALBUMIN 4.4 g/dL (3.5-5.0); ALKALINE PHOSPHATASE 49 U/L (38-126); ANION GAP 13 (5-19); ASPARTATE AMINO TRANSFERASE 19 U/L (14-36); BILIRUBIN,DIRECT 0.2 mg/dL (0.0-0.4); BILIRUBIN,TOTAL 0.3 mg/dL (0.2-1.3); BLOOD UREA NITROGEN 18 mg/dL (7-20); CARBON DIOXIDE 23 mmol/L (22-30); CHLORIDE 106 mmol/L (98-107); GLUCOSE 102 mg/dL (75-110); LIPASE 123.7 U/L (23-300); SODIUM 142.2 mmol/L (137-145); TOTAL PROTEIN 7.1 g/dL (6.3-8.2)
[2017-07-02 00:28] LABS: APPEARANCE,URINE SLIGHTLY-CLOUDY; BILIRUBIN,URINE NEGATIVE (NEGATIVE); COLOR,URINE YELLOW; GLUCOSE, URINE NEGATIVE (NEGATIVE); KETONES,URINE NEGATIVE (NEGATIVE); LEUKOCYTE ESTERASE,URINE NEGATIVE (NEGATIVE); NITRITE,URINE NEGATIVE (NEGATIVE); PROTEIN,URINE NEGATIVE (NEGATIVE); URINE SPECIFIC GRAVITY 1.024
--- NOTE | 2017-07-02 01:09 | RADIOLOGY REPORT (SQ) ---
EXAM DESCRIPTION: U/S NON OB PEL TV W/DOPPLER CLINICAL HISTORY: 21 years Female, RLQ pain last visceral. 06/10/2017 COMPARISON: None. TECHNIQUE: Complete pelvic ultrasound with transvaginal imaging FINDINGS: Uterus measures 8.8 x 5.1 x 4.2 cm. Endometrial thickness of 0.9 cm. No myometrial abnormalities. The right ovary measures 3.8 x 3.7 x 1.8 cm by my measurements. Within the right ovary there is a 3.4 x 2.4 x 2.4 cm cyst with internal echogenicity compatible with a hemorrhagic cyst. No follow-up imaging recommended. The left ovary measures 3.4 x 2.6 x 2.4 cm. There is a 2.1 x 2.0 x 2.0 cm cyst with internal echogenicity compatible with a hemorrhagic cyst. No follow-up imaging recommended. Limited color and spectral Doppler imaging demonstrates flow within the ovaries bilaterally. Moderate amount of free pelvic fluid within the pelvis. IMPRESSION: 1. Moderate amount of free pelvic fluid. This may be physiologic however inflammatory or infectious conditions of the pelvis could produce a similar appearance. 2. No other sonographic abnormalities identified.
[2017-07-02 02:02] VITALS: BP 100/59
== END 2017-07-02 02:03 | disposition home or self-care (01) ==
LOC: ER 21:43
DX: N83.201 Unspecified ovarian cyst, right side (principal); R10.31 Right lower quadrant pain
CPT/HCPCS: 99284; 36415; 83690; 85025; 81025; 80053; 81001; 76830; 93976; J3490